=== PATIENT | female | born 2000 | race Caucasian/White ===

== ENCOUNTER 2021-08-10 10:01 | Emergency (ER) | payer BC ==
[~2021-08-10] VITALS: Ht 157.5 cm; Wt 109.1 kg
[2021-08-10 10:32] VITALS: BP 130/89; TEMP 98.4
[2021-08-10 12:45] VITALS: PULSE 84
== END 2021-08-10 12:45 | disposition home or self-care (01) ==
LOC: COL.ER 10:01
DX: S60.211A Contusion of right wrist, initial encounter (principal); W10.8XXA Fall (on) (from) other stairs and steps, initial encounter